=== PATIENT | male | born 1945 | race Caucasian/White ===

== ENCOUNTER 2018-11-08 15:21 | Emergency (ER) | payer OTHER, MEDICARE ==
[~2018-11-08] VITALS: Ht 177.8 cm; Wt 86.2 kg
[2018-11-08 15:58] LABS: BASOPHILS ABSOLUTE AUTO 0.08 K/mm3 (0.00-0.23); BASOPHILS PERCENT AUTO 1 % (0-2); EOSINOPHILS ABSOLUTE AUTO 0.43 K/mm3 (0.00-0.68); EOSINOPHILS PERCENT AUTO 5 % (0-6); Hematocrit 45.2 % (37.0-53.0); Hemoglobin 15.3 g/dL (13.5-17.5); IMMATURE GRAN ABSOLUTE AUTO 0.02 K/mm3 (0.00-0.10); IMMATURE GRAN PERCENT AUTO 0 % (0-1); LYMPHOCYTES ABSOLUTE AUTO 2.14 K/mm3 (0.84-5.20); LYMPHOCYTES PERCENT AUTO 25 % (21-46); MONOCYTES ABSOLUTE AUTO 0.72 K/mm3 (0.16-1.47); MONOCYTES PERCENT AUTO 9 % (4-13); Mean Corpuscular HGB 32.1 pg (26.0-34.0); Mean Corpuscular HGB Conc 33.8 g/dL (31.5-36.5); Mean Corpuscular Volume 95 fL (80-100); Mean Platelet Volume 9.2 fL (9.1-12.4); NEUTROPHILS ABSOLUTE AUTO 5.09 K/mm3 (1.96-9.15); NEUTROPHILS PERCENT AUTO 60 % (41-73); Platelet Count 162 K/mm3 (150-400); RDW Coefficient Variation 12.2 % (11.7-14.2); RDW Standard Deviation 42.8 fL (35.1-46.3); Red Blood Cell Count 4.76 M/mm3 (4.30-5.90); White Blood Cell Count 8.48 K/mm3 (4.00-11.30)
[2018-11-08 16:23] LABS: Alanine Aminotransfer (ALT/SGP 24 U/L (12-78); Albumin, Blood 3.8 g/dL (3.4-5.0); Albumin/Globulin Ratio 1.1 (0.8-1.8); Alk Phos 93 U/L (50-136); Anion Gap 5 mmol/L (6-16); Aspartate Aminotrans (AST/SGOT 14 U/L (12-37); Bilirubin, Total 0.6 mg/dL (0.1-1.0); Blood Urea Nitrogen 16 mg/dL (8-24); Bun/Creatinine Ratio 15.1 (12.0-20.0); CO2, Blood 30 mmol/L (21-32); Calcium, Blood 9.1 mg/dL (8.5-10.1); Chloride, Blood 103 mmol/L (98-108); Creatinine, Blood 1.06 mg/dL (0.60-1.20); Globulin, Blood 3.6 g/dL (2.2-4.0); Glomerular Filtration Rate >60 (60-); Glucose, Blood 95 mg/dL (70-99); Potassium, Blood 4.3 mmol/L (3.5-5.5); Sodium, Blood 138 mmol/L (136-145); Total Protein, Blood 7.4 g/dL (6.4-8.2); Troponin I 0.019 ng/mL (0.000-0.040)
== END 2018-11-08 19:54 | disposition home or self-care (01) ==
LOC: ER 15:21
PROVIDERS: Physician Assistant
DX: K85.90 Acute pancreatitis without necrosis or infection, unspecified (principal); R07.89 Other chest pain; Z87.891 Personal history of nicotine dependence; Z88.0 Allergy status to penicillin; Z88.8 Allergy status to other drugs, medicaments and biological substances; Z91.018 Allergy to other foods
CPT/HCPCS: 36415; 71046; 80053; 83690; 84484; 85025; 93005; 93010; 99285-25

== ENCOUNTER 2019-07-21 12:58 | Inpatient (IN) | payer OTHER, MEDICARE ==
[~2019-07-21] VITALS: Ht 177.8 cm; Wt 88.5 kg
[2019-07-21 13:31] LABS: BASOPHILS ABSOLUTE AUTO 0.07 K/mm3 (0.00-0.23); BASOPHILS PERCENT AUTO 1 % (0-2); EOSINOPHILS ABSOLUTE AUTO 0.31 K/mm3 (0.00-0.68); EOSINOPHILS PERCENT AUTO 3 % (0-6); Hematocrit 43.7 % (37.0-53.0); Hemoglobin 14.6 g/dL (13.5-17.5); IMMATURE GRAN ABSOLUTE AUTO 0.03 K/mm3 (0.00-0.10); IMMATURE GRAN PERCENT AUTO 0 % (0-1); LYMPHOCYTES PERCENT AUTO 18 % (21-46); MONOCYTES ABSOLUTE AUTO 0.71 K/mm3 (0.16-1.47); MONOCYTES PERCENT AUTO 8 % (4-13); Mean Corpuscular HGB Conc 33.4 g/dL (31.5-36.5); Mean Corpuscular Volume 96 fL (80-100); Mean Platelet Volume 9.3 fL (9.1-12.4); NEUTROPHILS ABSOLUTE AUTO 6.55 K/mm3 (1.96-9.15); NEUTROPHILS PERCENT AUTO 70 % (41-73); Platelet Count 148 K/mm3 (150-400); RDW Coefficient Variation 12.1 % (11.7-14.2); RDW Standard Deviation 42.5 fL (35.1-46.3); Red Blood Cell Count 4.56 M/mm3 (4.30-5.90); White Blood Cell Count 9.37 K/mm3 (4.00-11.30)
[2019-07-21 13:53] LABS: Alanine Aminotransfer (ALT/SGP 25 U/L (12-78); Albumin, Blood 3.5 g/dL (3.4-5.0); Alk Phos 86 U/L (50-136); Anion Gap 0 mmol/L (6-16); Aspartate Aminotrans (AST/SGOT 18 U/L (12-37); Bilirubin, Total 0.7 mg/dL (0.1-1.0); Blood Urea Nitrogen 12 mg/dL (8-24); Bun/Creatinine Ratio 11.7 (12.0-20.0); CO2, Blood 31 mmol/L (21-32); Calcium, Blood 9.1 mg/dL (8.5-10.1); Chloride, Blood 107 mmol/L (98-108); Creatinine, Blood 1.03 mg/dL (0.60-1.20); Globulin, Blood 3.5 g/dL (2.2-4.0); Glomerular Filtration Rate >60 (60-); Glucose, Blood 96 mg/dL (70-99); Potassium, Blood 4.6 mmol/L (3.5-5.5); Sodium, Blood 138 mmol/L (136-145)
[2019-07-21 13:54] LABS: Troponin I 0.016 ng/mL (0.000-0.040)
[2019-07-21] MEDS ORDERED: Coreg12.5 MG PO (13:56)
[2019-07-21] MEDS ORDERED: Flonase 0.05% N16 GM (14:00)
[2019-07-21] MEDS ORDERED: LOSA25 PO (14:02)
[2019-07-21] MEDS ORDERED: OXYB5 PO (14:03)
[2019-07-21] MEDS ORDERED: MIRALAX17 GM PO (14:03)
[2019-07-21] MEDS ORDERED: SPIR50 PO (14:07)
[2019-07-21] MEDS ORDERED: TRAZ100 PO (14:07)
--- NOTE | 2019-07-21 17:06 | NUR ---
Echocardiogram completed.
[2019-07-21] MEDS ORDERED: Vitamin D2000 UNIT PO (17:21)
--- NOTE | 2019-07-21 18:20 | NUR ---
PATIENT ADMITTED AT ABOUT 1715. PATIENT WAS SITTING ON SIDE OF TUB AND PASSED OUT AT HOME. DID NOT HIT HEAD. WHEN AUTOMATIC DEFIBRILLATOR WAS CHECKED IN E.R.SHOWED VTACH AND PATIENT WAS SHOCKED. ALERT. ORIENTED. DENIES; SOB,C.P. OR DISCOMFORT. TELE JUST PUT ON AND PER PCU SINUS NEDA AT 50. BED ALARM ON. AWARE NEEDS TO CALL STAFF IF NEEDS TO GET UP. AWARE NPO AFTER MIDNITE. WCTM
--- NOTE | 2019-07-22 00:54 | NUR ---
CALLED BUS GREASER INFORMED HIM THAT PT HAS REFUSED TO TAKE THE ASPIRIN ORDERED FOR HIM. I WAS INSTRUCTED TO INFORM PT OF THE RISKS OF NOT TAKING THIS MEDICATION, AND I HAVE DONE SO. PT STILL REFUSING TO ACCEPT THE ASPIRIN, THIS HAS BEEN DOCUMENTED IN THE EMAR
--- NOTE | 2019-07-22 04:18 | NUR ---
SHIFT SUMMARY ADMITTED FOR V TACH. FULL CODE. PLAN IS FOR CARDIOLOGY CONSULT AND POSSIBLE STRESS TEST. PT WAS MADE NPO @ MIDNIGHT THIS SHIFT. TELEMETRY: NEDA @ 50 BPM. PACEMAKER/DEFIB/ICD IN PLACE. TROPONINS HAVE PEAKED AND ARE NOW TRENDING DOWN. FROM 0.059 TO 0.044. PT REFUSED ASPIRIN THIS SHIFT, PT EDUCATED ON RISKS OF REFUSAL. PT HAS A CARDIAC/LACTOSE INTOLERANT/GLUTEN FREE DIET. HE IS A [facility] WHO LIVES WITH HIS AT HOME. HE HAS BEEN HYPERTENSIVE. HE IS ON RA, STANDBY ASSIST DUE TO FALL AT HOME. CONSULT IS DR WHITE.
--- NOTE | 2019-07-22 12:14 | NUR ---
TO PLASMA CENTER NURSE VIA W/C
--- NOTE | 2019-07-22 13:40 | NUR ---
TRANSFER NOTE- PT ADMITTED TO ICU-PCU STATUS FROM [facility] CENTER. AWAKE, ALERT, COOPERATIVE. IN WHEELCHAIR, TRANSFER TO BED WITHOUT PROBLEMS. LUNGS CLEAR, DENIES ANY PAIN. RIGHT RADIAL ARMBOARD IN PLACE, TR BAND INFLATED, CMS CHECKS INTACT, NO NUMBNESS OR TINGLING. NO N/V, EATING. PIV INTACT.
--- NOTE | 2019-07-22 14:01 | NUR ---
REPORT TO YNES WALTON RN IN ICU. PATIENT FROM REGULATORY AFFAIRS DIRECTOR TO ICU. AWARE PATIENT IN ICU.
--- NOTE | 2019-07-22 17:10 | NUR ---
TR BAND GRADUALLY DEFLATED AND REMOVED WITHOUT PROBLEMS. SITE DI, REVIEWED PRECAUTIONS, STATES UNDERSTANDING. UPDATE TO DR. CALVIN AND DR. WHITE. PLAN FOR DISCHARGE HOME. PT DENIES COMPLAINTS.
[2019-07-22] MEDS ORDERED: Pacerone400 MG PO (18:07)
--- NOTE | 2019-07-22 18:35 | NUR ---
REVIEWED DISCHARGE INSTRUCTIONS WITH PT, STATES UNDERSTANDING. OBTAINS MEDICATIONS FROM [facility]. DOSE GIVEN TODAY, WILL DIESEL TRUCK TECHNICIAN WEEKENDS DOSES AT PHARMACY AND THEN F[facility] AT [facility] COP[facility]. RIGHT RADIAL SITE DI, REVIEWED PRECAUTIONS, [facility] CHECKS WNL. VSS.DENIES ANY PAIN OR SOB. SINUS NEDA, NO ECTOPY. GOOD APPETITE. UP IN ROOM BY SELF WITHOUT PROBLEMS.
== END 2019-07-22 18:35 | disposition home or self-care (01) | DRG 287 ==
LOC: ER 12:58 → MEDS 12:59 → ICUW 07-22 13:15
PROVIDERS: Physician Assistant; ADMIT Internal Medicine
PROC: B2111ZZ Fluoroscopy of Multiple Coronary Arteries using Low Osmolar Contrast (ICD-10-PCS; principal; 2019-07-22)
DX: I42.7 Cardiomyopathy due to drug and external agent (principal); I47.2 Ventricular tachycardia; I50.22 Chronic systolic (congestive) heart failure; M54.30 Sciatica, unspecified side; K90.0 Celiac disease; Z95.810 Presence of automatic (implantable) cardiac defibrillator; I11.0 Hypertensive heart disease with heart failure; K21.9 Gastro-esophageal reflux disease without esophagitis; F41.9 Anxiety disorder, unspecified; F32.9 Major depressive disorder, single episode, unspecified; I25.10 Atherosclerotic heart disease of native coronary artery without angina pectoris; T50.905A Adverse effect of unspecified drugs, medicaments and biological substances, initial encounter; Y92.9 Unspecified place or not applicable
CPT/HCPCS: 36415; 76937; 80053; 83735; 83880; 84443; 84484; 85025; 93005; 93010; 93306; 93454; 99152; 99285-25; C1769; C1894; J1644; J2250; J3010; J7030; Q9967

== ENCOUNTER 2021-01-04 09:30 | Day surgery (SDC) | payer OTHER ==
[~2021-01-04] VITALS: Ht 177.8 cm; Wt 89.4 kg
[~2021-01-04 09:30] MED LIST: Coreg12.5 MG PO; Flonase 0.05% N16 GM; LOSA25 PO; MIRALAX17 GM PO; OXYB5 PO; Pacerone400 MG PO; Ropinirole HCl0.5 MG PO; SPIR50 PO; TRAZ100 PO; Vitamin D2000 UNIT PO
[2021-01-04] MEDS ORDERED: Flonase 0.05% N16 GM (10:12)
[2021-01-04] MEDS ORDERED: TADALAFIL20 MG PO (10:13)
[2021-01-04] MEDS ORDERED: [UNRECOGNIZED DRUG - OTHER] PO (10:15)
[2021-01-04] MEDS ORDERED: Amoxicillin500 MG PO (10:16)
--- NOTE | 2021-01-04 17:31 | NUR ---
SHIFT SUMMARY; ASSUMED CARE FROM HEART CENTER POST PACEMAKER PLACEMENT. LEFT ARM PLACED IN SLING AND INSTRUCTED NOT TO LIFT ARM. PRESSURE DRESSING ON SITE, CLEAN DRY AND INTACT, DENIES PAIN. VSS, A/A/OX4. WILL CONTINUE TO MONITOR AND TREAT UNTIL CHANGE OF SHIFT.
[2021-01-04] MEDS ORDERED: CYCL10 PO (19:47)
[2021-01-05 04:18] LABS: Anion Gap 4 mmol/L (6-16); Blood Urea Nitrogen 16 mg/dL (8-24); Bun/Creatinine Ratio 13.7 (12.0-20.0); CO2, Blood 28 mmol/L (21-32); Calcium, Blood 8.9 mg/dL (8.5-10.1); Chloride, Blood 106 mmol/L (98-108); Creatinine, Blood 1.17 mg/dL (0.60-1.20); Glomerular Filtration Rate >60 (60-); Glucose, Blood 104 mg/dL (70-99); Potassium, Blood 4.8 mmol/L (3.5-5.5); Sodium, Blood 138 mmol/L (136-145)
--- NOTE | 2021-01-05 10:35 | NUR ---
I WAS WORKING ON PATIENT'S DISCHARGE. CALLED DR. CASTRO PATIENT'S DISCHARGE MEDICATION RECONCILIATION WAS NOT COMPLETE. HE ASKED ME TO REVIEW IT WITH HIM OVER THE PHONE. THESE ARE THE MEDICATIONS HE ORDERED FOR THE PATIENT'S DISCHARGE MED REC: CONTINUE THE FOLLOWING MEDICATIONS: AMIODARONE 200 MG PO BID CARVEDILOL 12.5 MG PO BID WITH MEALS FLONASE 0.05% NASAL SPRAY 1 SPRAY NASAL DAILY LOSARTAN 25 MG PO DAILY REQUIP 0.5 MG PO TID ALDACTONE 12.5 MG PO DAILY TADALAFIL 200 MG PO DAILY MAXIFED TR 30-1.25 MG TABLET 1 TAB PO DAILY FLEXERIL 10 MG PO BEDTIME DISCONTINUE THE FOLLOWING MEDICATION: AMOXICILLIN 500 MG PO TID
--- NOTE | 2021-01-05 10:45 | NUR ---
PATIENT NEEDS HAVE A FOLLOW UP APPOINTMENT IN [address] CASTRO. FAXED ORDER TO CARDIOLOGY OFFICE AND WROTE ON DISCHARGE PAPERWORK THAT PATIENT NEEDS TO ENSURE THAT THIS FOLLOW UP APPOINTMENT IS SCHEDULED. WOUND CARE CHECK PUT ON DISCHARGE PAPERWORK.
== END 2021-01-05 10:55 | disposition home or self-care (01) ==
LOC: MHTC 09:30 → PCU 12:52 → MHTC 01-05 10:55
PROVIDERS: Internal Medicine Cardiovascular Disease
DX: I44.1 Atrioventricular block, second degree (principal); I11.0 Hypertensive heart disease with heart failure; I50.9 Heart failure, unspecified; I42.0 Dilated cardiomyopathy; J44.9 Chronic obstructive pulmonary disease, unspecified; I25.10 Atherosclerotic heart disease of native coronary artery without angina pectoris; E78.5 Hyperlipidemia, unspecified; Z88.0 Allergy status to penicillin; Z79.899 Other long term (current) drug therapy
CPT/HCPCS: 33225; 36415; 71046; 80048; 99152; 99153; A9270; C1769; C1882; C1894; J1580; J1644; J2250; J3010; J3370; J7030; J7040; Q9967

== ENCOUNTER 2021-04-22 09:08 | Day surgery (SDC) | payer OTHER ==
[~2021-04-22] VITALS: Ht 177.8 cm; Wt 90.4 kg
[~2021-04-22 09:08] MED LIST changes: +Amoxicillin500 MG PO; +CYCL10 PO; +TADALAFIL20 MG PO; +[UNRECOGNIZED DRUG - OTHER] PO
--- NOTE | 2021-04-22 10:00 | NUR ---
04/22/21 1000 SHON QUIÑONES TETRACAINE DROP INSTILLED AT 0953 PLEDGETT INSERTED AT 0916
== END 2021-04-22 11:17 | disposition home or self-care (01) ==
LOC: ORSCSDS 09:08
PROVIDERS: Ophthalmology
PROC: 08RJ3JZ Replacement of Right Lens with Synthetic Substitute, Percutaneous Approach (ICD-10-PCS; principal; 2021-04-22 10:30)
DX: H25.13 Age-related nuclear cataract, bilateral (principal); I25.10 Atherosclerotic heart disease of native coronary artery without angina pectoris; Z95.0 Presence of cardiac pacemaker; I10 Essential (primary) hypertension; E78.5 Hyperlipidemia, unspecified; Z79.899 Other long term (current) drug therapy; Z87.891 Personal history of nicotine dependence; G25.81 Restless legs syndrome
CPT/HCPCS: J2001; J2250; J3010; J3301; J7040; V2632

== ENCOUNTER 2021-05-23 08:23 | Day surgery (SDC) | payer OTHER ==
[~2021-05-23] VITALS: Ht 180.3 cm; Wt 91.3 kg
--- NOTE | 2021-05-23 09:15 | NUR ---
05/23/21 0915 SHON QUIÑONES TETRACAINE DROP INSTILLED AT 0914. PLEDGETT INSERTED AT 0915
== END 2021-05-23 10:44 | disposition home or self-care (01) ==
LOC: ORSCSDS 08:23
PROVIDERS: Ophthalmology
PROC: 08RK3JZ Replacement of Left Lens with Synthetic Substitute, Percutaneous Approach (ICD-10-PCS; principal; 2021-05-23 10:00)
DX: H25.12 Age-related nuclear cataract, left eye (principal); Z87.891 Personal history of nicotine dependence; I25.10 Atherosclerotic heart disease of native coronary artery without angina pectoris; E78.5 Hyperlipidemia, unspecified; I10 Essential (primary) hypertension; Z95.0 Presence of cardiac pacemaker; Z79.899 Other long term (current) drug therapy
CPT/HCPCS: J2001; J2250; J3010; J3301; J7040; V2632

== ENCOUNTER 2021-06-26 16:47 | Emergency (ER) | payer OTHER ==
[~2021-06-26] VITALS: Ht 177.8 cm; Wt 88.0 kg
[2021-06-26] MEDS ORDERED: ROPI1 PO (17:59)
[2021-06-26] MEDS ORDERED: TADALAFIL20 MG PO (17:59)
[2021-06-26 18:59] LABS: BASOPHILS ABSOLUTE AUTO 0.07 K/mm3 (0.00-0.23); BASOPHILS PERCENT AUTO 1 % (0-2); EOSINOPHILS ABSOLUTE AUTO 0.47 K/mm3 (0.00-0.68); EOSINOPHILS PERCENT AUTO 6 % (0-6); Hematocrit 41.2 % (37.0-53.0); Hemoglobin 13.4 g/dL (13.5-17.5); IMMATURE GRAN ABSOLUTE AUTO 0.02 K/mm3 (0.00-0.10); IMMATURE GRAN PERCENT AUTO 0 % (0-1); LYMPHOCYTES ABSOLUTE AUTO 2.25 K/mm3 (0.84-5.20); LYMPHOCYTES PERCENT AUTO 31 % (21-46); MONOCYTES PERCENT AUTO 11 % (4-13); Mean Corpuscular HGB 31.7 pg (26.0-34.0); Mean Corpuscular HGB Conc 32.5 g/dL (31.5-36.5); Mean Corpuscular Volume 97 fL (80-100); Mean Platelet Volume 9.5 fL (9.1-12.4); NEUTROPHILS PERCENT AUTO 51 % (41-73); Platelet Count 159 K/mm3 (150-400); RDW Coefficient Variation 13.2 % (11.7-14.2); Red Blood Cell Count 4.23 M/mm3 (4.30-5.90); White Blood Cell Count 7.31 K/mm3 (4.00-11.30)
[2021-06-26 19:18] LABS: Albumin, Blood 3.3 g/dL (3.4-5.0); Albumin/Globulin Ratio 0.9 (0.8-1.8); Bilirubin, Total 0.5 mg/dL (0.1-1.0); Bun/Creatinine Ratio 9.7 (12.0-20.0); Calcium, Blood 8.9 mg/dL (8.5-10.1); Creatinine, Blood 1.03 mg/dL (0.60-1.20); Globulin, Blood 3.7 g/dL (2.2-4.0); Potassium, Blood 3.8 mmol/L (3.5-5.5)
[2021-06-26] MEDS ORDERED: Protonix40 MG PO (19:54)
== END 2021-06-26 20:11 | disposition home or self-care (01) ==
LOC: ER 16:47
PROVIDERS: Physician Assistant
DX: R10.13 Epigastric pain (principal); R10.11 Right upper quadrant pain; Z95.0 Presence of cardiac pacemaker; Z88.6 Allergy status to analgesic agent; Z88.0 Allergy status to penicillin; Z88.8 Allergy status to other drugs, medicaments and biological substances; Z79.899 Other long term (current) drug therapy
CPT/HCPCS: 36415; 80053; 83605; 83690; 85025

== ENCOUNTER 2022-03-18 13:22 | Inpatient (IN) | payer OTHER ==
[~2022-03-18] VITALS: Ht 180.3 cm; Wt 87.1 kg
[~2022-03-18 13:22] MED LIST changes: +Protonix40 MG PO; +ROPI1 PO
[2022-03-18 14:27] LABS: BASOPHILS ABSOLUTE AUTO 0.06 K/mm3 (0.00-0.23); BASOPHILS PERCENT AUTO 1 % (0-2); EOSINOPHILS ABSOLUTE AUTO 0.43 K/mm3 (0.00-0.68); EOSINOPHILS PERCENT AUTO 6 % (0-6); Hematocrit 42.3 % (37.0-53.0); Hemoglobin 14.7 g/dL (13.5-17.5); IMMATURE GRAN ABSOLUTE AUTO 0.02 K/mm3 (0.00-0.10); IMMATURE GRAN PERCENT AUTO 0 % (0-1); LYMPHOCYTES ABSOLUTE AUTO 2.55 K/mm3 (0.84-5.20); LYMPHOCYTES PERCENT AUTO 34 % (21-46); MONOCYTES ABSOLUTE AUTO 0.71 K/mm3 (0.16-1.47); MONOCYTES PERCENT AUTO 10 % (4-13); Mean Corpuscular HGB 33.1 pg (26.0-34.0); Mean Corpuscular HGB Conc 34.8 g/dL (31.5-36.5); Mean Corpuscular Volume 95 fL (80-100); Mean Platelet Volume 9.8 fL (9.1-12.4); NEUTROPHILS ABSOLUTE AUTO 3.65 K/mm3 (1.96-9.15); NEUTROPHILS PERCENT AUTO 49 % (41-73); Platelet Count 162 K/mm3 (150-400); RDW Standard Deviation 41.8 fL (35.1-46.3); Red Blood Cell Count 4.44 M/mm3 (4.30-5.90); White Blood Cell Count 7.42 K/mm3 (4.00-11.30)
[2022-03-18 14:36] LABS: Source, Urine Clean Catch
[2022-03-18 14:38] LABS: Albumin, Blood 3.6 g/dL (3.4-5.0); Albumin/Globulin Ratio 1.1 (0.8-1.8); Bilirubin, Total 0.8 mg/dL (0.1-1.0); Bun/Creatinine Ratio 14.5 (12.0-20.0); Calcium, Blood 9.4 mg/dL (8.5-10.1); Creatinine, Blood 1.17 mg/dL (0.60-1.20); Globulin, Blood 3.4 g/dL (2.2-4.0); Potassium, Blood 4.4 mmol/L (3.5-5.5)
[2022-03-18 14:40] LABS: Appearance, Urine Clear (Clear); Bilirubin, Urine Neg (Neg); Blood, Urine Neg (Neg); Color, Urine Yellow (P-Yellow); Glucose Qualitative, Urine Neg (Neg); Ketones, Urine Neg (Neg); Leukocyte Esterase, Urine Neg (Neg); Nitrite, Urine Neg (Neg); Protein, Urine Neg (Neg); Urobilinogen, Urine NORM (Normal); pH, Urine 6.5 (5.0-8.0)
[2022-03-18 15:59] LABS: U Amphetamine Screen Not Detected; U Barbituate Screen Not Detected; U Benzodiazapine Screen Not Detected; U Buprenorphine Screen Not Detected; U Cannabinoids Screen DETECTED; U Cocaine Screen Not Detected; U Methadone Screen Not Detected; U Methamphetamine Screen Not Detected; U Opiates Screen Not Detected; U Oxycodone Screen Not Detected; U Phencyclidine Screen Not Detected; U Propoxyphene Screen Not Detected
[2022-03-18] MEDS ORDERED: VITAMIN D32000 UNI1 PO (20:55)
[2022-03-19 05:27] LABS: BASOPHILS ABSOLUTE AUTO 0.02 K/mm3 (0.00-0.23); BASOPHILS PERCENT AUTO 0 % (0-2); EOSINOPHILS PERCENT AUTO 0 % (0-6); Hematocrit 44.4 % (37.0-53.0); Hemoglobin 15.5 g/dL (13.5-17.5); IMMATURE GRAN ABSOLUTE AUTO 0.03 K/mm3 (0.00-0.10); IMMATURE GRAN PERCENT AUTO 0 % (0-1); LYMPHOCYTES ABSOLUTE AUTO 1.18 K/mm3 (0.84-5.20); LYMPHOCYTES PERCENT AUTO 11 % (21-46); MONOCYTES ABSOLUTE AUTO 0.07 K/mm3 (0.16-1.47); MONOCYTES PERCENT AUTO 1 % (4-13); Mean Corpuscular HGB 32.2 pg (26.0-34.0); Mean Corpuscular HGB Conc 34.9 g/dL (31.5-36.5); Mean Corpuscular Volume 92 fL (80-100); Mean Platelet Volume 9.5 fL (9.1-12.4); NEUTROPHILS ABSOLUTE AUTO 9.13 K/mm3 (1.96-9.15); NEUTROPHILS PERCENT AUTO 88 % (41-73); Platelet Count 154 K/mm3 (150-400); RDW Coefficient Variation 11.8 % (11.7-14.2); RDW Standard Deviation 40.4 fL (35.1-46.3); Red Blood Cell Count 4.81 M/mm3 (4.30-5.90); White Blood Cell Count 10.43 K/mm3 (4.00-11.30)
[2022-03-19 05:54] LABS: Albumin, Blood 3.4 g/dL (3.4-5.0); Albumin/Globulin Ratio 0.9 (0.8-1.8); Bilirubin, Total 1.1 mg/dL (0.1-1.0); Bun/Creatinine Ratio 20.5 (12.0-20.0); Calcium, Blood 9.5 mg/dL (8.5-10.1); Creatinine, Blood 1.12 mg/dL (0.60-1.20); Globulin, Blood 3.7 g/dL (2.2-4.0); Potassium, Blood 4.8 mmol/L (3.5-5.5); Total Protein, Blood 7.1 g/dL (6.4-8.2)
--- NOTE | 2022-03-19 06:00 | NUR ---
END OF SHIFT NURSING REPORT Admitted last night for altered mental status. A Ct was done in the Ed - CT scan shows there is a 3.9 cm mass in the left temporal-parietal region with moderate surrounding white matter hypo-attenuation and mass effect. No resultant midline shift/herniation. Dr. Choe did ultimately accept the patient at [facility] in [place] however there are no available beds at this time and expects there to be a bed available tomorrow afternoon. 2-RN skin assessment done and documented a Nonblanchable erythema to coccyx, barrier cream and Mepilex Border Sacrum dressing applied. Out of bed x1 standby assist.
--- NOTE | 2022-03-19 13:22 | NUR ---
Brief supportive visit this afternoon. Pt resting in bed with spouse Radha at bedside. Pt appears confused as evidenced by repeating questions over and over. Pt denies pain at this time. Engaged in therapeutic listening as spouses discusses family. Spouse Radha reports being to Pt for 50 years. She reports they have 3 sons and 1 daughter. Radha reports family is supportive. Continued therapeutic listening. Radha reports Pt completed an advanced directive and can not find the copy Pt brought home. Instructed this [facility]. Continued supportive visit. Spouse reports being in agreement of plan for Pt to transfer to [facility]. [facility]. Palliative Care will remain available.
--- NOTE | 2022-03-19 18:06 | NUR ---
PT TRANSFERED TO [facility] VIA TRANSPORT. REPORT CALLED TO SREE YBARRA.
== END 2022-03-19 17:39 | disposition short-term general hospital (02) | DRG 70 ==
LOC: ER 13:22 → MEDS 19:08
PROVIDERS: Student in an Organized Health Care Education/Training Program; ADMIT Student in an Organized Health Care Education/Training Program
DX: G93.89 Other specified disorders of brain (principal); G93.6 Cerebral edema; G93.49 Other encephalopathy; I50.22 Chronic systolic (congestive) heart failure; I42.8 Other cardiomyopathies; Z66 Do not resuscitate; E78.5 Hyperlipidemia, unspecified; I11.0 Hypertensive heart disease with heart failure; G25.81 Restless legs syndrome; K21.9 Gastro-esophageal reflux disease without esophagitis; Z88.8 Allergy status to other drugs, medicaments and biological substances; Z88.0 Allergy status to penicillin; Z91.041 Radiographic dye allergy status; Z79.899 Other long term (current) drug therapy; Z79.52 Long term (current) use of systemic steroids; Z86.79 Personal history of other diseases of the circulatory system; Z95.0 Presence of cardiac pacemaker; Z87.891 Personal history of nicotine dependence; Z98.890 Other specified postprocedural states
CPT/HCPCS: 36415; 70450; 71045; 80053; 81003; 82947; 85025; 93005; 93010; 96374; 96376; 99285-25; A9270; G0378; J1100